=== PATIENT | male | born 1995 | race Caucasian/White ===

== ENCOUNTER 2021-02-20 18:59 | Emergency (ER) | payer OTHER ==
--- NOTE | 2021-02-20 19:43 | PCM.EKG ---
#1 Interpretation EKG Date: 02/20/21 Time: 19:32 Rhythm: NSR Rate (Beats/Min): 83 [place]: Normal P-Wave: Present QRS: Normal ST-T: Normal QT: Normal [place]/PQ Interval: 157 Comparison: NA - No Prior EKG EKG Interpretation Comments: normal EKG
[2021-02-20] MEDS ORDERED: Pantoprazole 80 MG in Sodium Chloride 0.9% 20 ML IVPUSH ONE (20:06)
[2021-02-20] MEDS ORDERED: Ketorolac 30 MG/ML SDV IVPUSH ONE (20:06)
[2021-02-20] MEDS ORDERED: Alum Hydro/Mag Hydro/Simeth XS 15 ML, Metoclopramide 5 MG, Lidocaine 2% 5 ML PO ONE ×3 (20:06)
[2021-02-20 20:15] LABS: BLOOD UREA NITROGEN,BUN 9 mg/dL (7.0-18.0); CHLORIDE,CL 103 mmol/L (98-107); GLUCOSE RANDOM 109 mg/dL (74-106); LIPASE 47 U/L (73-393); POTASSIUM,K 3.7 mmol/L (3.5-5.1); SODIUM,NA 141 mmol/L (136-148)
--- NOTE | 2021-02-20 20:26 | EDM.PDOC ---
ED HPI GENERAL MEDICAL PROBLEM - General Chief Complaint: Chest Pain Stated Complaint: CHEST PAIN, DIFFICULTY BREATHING Time Seen by Provider: 02/20/21 19:27 Source of Information: Reports: Patient History Limitations: Reports: No Limitations - History of Present Illness INITIAL COMMENTS - FREE TEXT/NARRATIVE: HISTORY AND PHYSICAL: History of present illness: Patient is an otherwise healthy 25-year-old male who presents emergency room today with concern of difficulty discerning lower chest pain versus upper abdominal pain that has been ongoing since midnight. Patient states that the pain has been constant he describes it as sharp. Patient denies any alleviating or worsening factors and is nonexertional. Patient states he has not tried any medications for his symptoms. Patient denies any other associated symptoms. Patient denies any family history of significant cardiac disease and denies any notable family history. Patient denies fever, chills, shortness of breath, or cough. Denies headache, neck stiff ness, change in vision, syncope, or near syncope. Denies nausea, vomiting, abdominal pain, diarrhea, constipation, or dysuria. Has not noted any blood in urine or stool. Patient has been eating and drinking appropriately. Review of systems: As per history of present illness and below otherwise all systems reviewed and negative. Past medical history: As per history of present illness and as reviewed below otherwise noncontributory. Surgical history: As per history of present illness and as reviewed below otherwise noncontributory. Social history: See social history for further information Family history: As per history of present illness and as reviewed below otherwise noncontributory. Physical exam: General: Patient is alert, oriented, and in no acute distress. Patient sitting comfortably on exam table. Vitals table and reviewed by me. HEENT: Atraumatic, normocephalic, pupils equal and reactive bilaterally, negative for conjunctival pallor or scleral icterus, mucous membranes moist, throat clear, neck supple, nontender, trachea midline. No drooling or trismus noted. No meningeal signs. No hot potato voice noted. Lungs/chest: Patient does have nonspecific pain to palpation of the inferior portion of the sternum. Otherwise, clear to auscultation, breath sounds equal bilaterally, chest nontender. Heart: S1S2, regular rate and rhythm without overt murmur Abdomen: Soft, nondistended, patient does have pain to palpation of the epigastric area of the abdomen. Negative aviles/rebound. Negative for masses or hepatosplenomegaly. Negative for costovertebral tenderness. Pelvis: Stable nontender. Genitourinary: Deferred. Rectal: Deferred. Skin: Intact, warm, dry. No lesions or rashes noted. Extremities: Atraumatic, negative for cords or calf pain. Neurovascular unremarkable. Neuro: Awake, alert, oriented. Cranial nerves II through XII unremarkable. Cerebellum unremarkable. Motor and sensory unremarkable throughout. Exam nonfocal. Medical Decision Making: Is an otherwise healthy 25-year-old male who presents emergency room today with concern of chest pain/upper abdominal pain has been ongoing since midnight. Upon arrival to the ED, patient is vitally stable and well-appearing on exam. On exam, patient does have reproducible pain to palpation of his inferior sternum as well as some discomfort in his epigastric region. At this time, will obtain cardiac evaluation, provide therapeutics, and reassess patient. Dr. Daly's dictation for specific EKG interpretation. However, normal sinus rhythm without STEMI. Mild derangements of lab work today unremarkable. Troponin negative. Chest x- ray unremarkable. COVID negative Upon reevaluation of patient, he remains vitally stable and comfortable throughout stay in ED. He does have improvement of his symptoms with therapeutics today in the emergency room. Did discuss with patient the difficulty of discerning chest versus epigastric abdominal pain. I did offer patient abdominal pelvic CT scan however, he declines at this time. All risks versus benefits discussed with patient expresses understanding. Strict return precautions thoroughly discussed with patient. Discussed importance for follow- up with primary care provider. Voices understanding and is agreeable to plan of care. Denies any further questions or concerns at this time. Diagnostics: EKG, CBC, CMP, CXR, Trop, Lipase, COVID Therapeutics: Toradol, GI cocktail, Protonix Prescription: None Impression: Atypical chest pain Plan: 1. You can alternate ibuprofen and Tylenol as directed for pain and discomfort. 2. Follow-up with primary care provider as discussed. Return to the ED as needed and as discussed. Definitive disposition and diagnosis as appropriate pending reevaluation and review of above. Middle Chest Pain Score (Numeric/FACES): 7 - Related Data Allergies Allergy/AdvReac Type Severity Reaction Status Date / Time No Known Allergies Allergy Verified 02/20/21 19:18 Home Meds: Home Meds . [No Known Home Meds] 02/20/21 [History] Past Medical History - Past Health History Medical/Surgical History: Denies Medical/Surgical History - Infectious Disease History Infectious Disease History: Reports: None Social & Family History - Family History Family Medical History: No Pertinent Family History - Tobacco Use Tobacco Use Status *Q: Never Tobacco User - Recreational Drug Use Recreational Drug Use: No ED ROS GENERAL - Review of Systems Review Of Systems: Comprehensive ROS is negative, except as noted in HPI. ED EXAM, GENERAL - Physical Exam Exam: See Below (see dictation) Course - Vital Signs Last Recorded V/S: Last Vital Signs Temp 97.2 F 02/20/21 19:19 Pulse 88 02/20/21 19:19 Resp 17 02/20/21 19:19 BP 133/81 02/20/21 19:19 Pulse Ox 96 02/20/21 19:19 - Orders/Labs/Meds Orders: Active Orders 24 hr Category Date Time Status EKG Documentation Completion [RC] STAT Care 02/20/21 19:27 Active Labs: Laboratory Tests 02/20/21 02/20/21 02/20/21 Range/Units 19:40 19:40 20:50 WBC 10.61 (4.0-11.0) K/uL RBC 5.02 (4.50-5.90) M/uL Hgb 15.0 (13.0-17.0) g/dL Hct 42.1 (38.0-50.0) % MCV 83.9 (80.0-98.0) fL MCH 29.9 (27.0-32.0) pg MCHC 35.6 (31.0-37.0) g/dL RDW Std Deviation 38.0 (28.0-62.0) fl RDW Coeff of Serena 13 (11.0-15.0) % Plt Count 296 (150-400) K/uL MPV 9.70 (7.40-12.00) fL Neut % (Auto) 55.1 (48.0-80.0) % Lymph % (Auto) 35.1 (16.0-40.0) % Gaines % (Auto) 7.0 (0.0-15.0) % Eos % (Auto) 2.2 (0.0-7.0) % Baso % (Auto) 0.6 (0.0-1.5) % Neut # (Auto) 5.9 H (1.4-5.7) K/uL Lymph # (Auto) 3.7 H (0.6-2.4) K/uL Gaines # (Auto) 0.7 (0.0-0.8) K/uL Eos # (Auto) 0.2 (0.0-0.7) K/uL Baso # (Auto) 0.1 (0.0-0.1) K/uL Nucleated RBC % 0.0 /100WBC Nucleated RBCs # 0 K/uL Sodium 141 (136-148) mmol/L Potassium 3.7 (3.5-5.1) mmol/L Chloride 103 (98-107) mmol/L Carbon Dioxide 24.0 (21.0-32.0) mmol/L BUN 9 (7.0-18.0) mg/dL Creatinine 1.0 (0.8-1.3) mg/dL Est Cr Clr Drug Dosing 137.31 mL/min Estimated GFR (MDRD) > 60.0 ml/min Glucose 109 H (74-106) mg/dL Calcium 9.0 (8.5-10.1) mg/dL Total Bilirubin 0.6 (0.2-1.0) mg/dL AST 29 (15-37) IU/L ALT 52 (14-63) IU/L Alkaline Phosphatase 119 H (46-116) U/L Troponin I < 0.050 (0.000-0.056) ng/mL Total Protein 8.0 (6.4-8.2) g/dL Albumin 4.2 (3.4-5.0) g/dL Globulin 3.8 (2.6-4.0) g/dL Albumin/Globulin Ratio 1.1 (0.9-1.6) Lipase 47 L (73-393) U/L SARS-CoV-2 RNA (MIRIAM) NEGATIVE (NEGATIVE) Meds: Medications Discontinued Medications Generic Name Dose Route Start Last Admin Trade Name Freq PRN Reason Stop Dose Admin Alum [place]/Mag [place]/Simeth XS 0 ml 02/20/21 20:06 02/20/21 20:21 15 ml/ Metoclopramide HCl 5 PO 02/20/21 20:07 25 each mg/ Lidocaine HCl 5 ml ONETIME ONE Administration Pantoprazole Sodium 80 mg/ 20 mls @ 420 mls/hr 02/20/21 20:06 02/20/21 20:20 Sodium Chloride IVPUSH 02/20/21 20:08 420 mls/hr ONETIME ONE Administration Ketorolac Tromethamine 30 mg 02/20/21 20:06 02/20/21 20:20 Ketorolac 30 Mg/Ml Sdv IVPUSH 02/20/21 20:07 30 mg ONETIME ONE Administration Departure - Departure Time of Disposition: 20:56 Disposition: Home, Self-Care 01 Clinical Impression: Atypical chest pain - Discharge Information Instructions: Nonspecific Chest Pain, Adult, [id number] Referrals: PCP,None [Primary Care Provider] - Forms: ED Department Discharge Additional Instructions: The following information is given to patients seen in the emergency department who are being discharged to home. This information is to outline your options for follow-up care. We provide all patients seen in our emergency department with a follow-up referral. The need for follow-up, as well as the timing and circumstances, are variable depending upon the specifics of your emergency department visit. If you don't have a primary care physician on staff, we will provide you with a referral. We always advise you to contact your personal physician following an emergency department visit to inform them of the circumstance of the visit and for follow-up with them and/or the need for any referrals to a consulting specialist. The emergency department will also refer you to a specialist when appropriate. This referral assures that you have the opportunity for follow-up care with a specialist. All of these measure are taken in an effort to provide you with optimal care, which includes your follow-up. Under all circumstances we always encourage you to contact your private physician who remains a resource for coordinating your care. When calling for follow-up care, please make the office aware that this follow-up is from your recent emergency room visit. If for any reason you are refused follow-up, please contact the [facility] Emergency Department at and asked to speak to the emergency department charge nurse. [facility] Primary Care [address] [place] [id number] [facility] [address] [place] [address] 1. You can alternate ibuprofen and Tylenol as directed for pain and discomfort. 2. Follow-up with a primary care provider as discussed. Return to the ED as needed and as discussed. Sepsis Event Note (ED) - Focused Exam Vital Signs: Vital Signs Temp Pulse Resp BP Pulse Ox 02/20/21 19:19 97.2 F 88 17 133/81 96 - My Orders Last 24 Hours: My Active Orders 02/20/21 19:27 EKG Documentation Completion [RC] STAT - Assessment/Plan Last 24 Hours: My Active Orders 02/20/21 19:27 EKG Documentation Completion [RC] STAT
--- NOTE | 2021-02-20 21:21 | CR ---
Indication: Chest pain Technique: Portable chest Comparison: No comparison Findings: Normal cardiac mediastinal silhouette. Low lung volumes. No acute airspace or interstitial. No effusion or pneumothorax. Impression: Negative chest Dictated by Lori Mccarty MD @ 02/20/2021 9:20:57 PM (Electronically Signed)
== END 2021-02-20 21:05 | disposition home or self-care (01) ==
LOC: MW.ED 18:59
DX: R07.89 Other chest pain (principal); Z20.822 Contact with and (suspected) exposure to COVID-19
CPT/HCPCS: 36415; 71045; 80053; 83690; 84484; 85025; 87635; 93005; 96374; 96375; 99285; A9270; C9113; J1885; U0002

== ENCOUNTER 2021-02-21 15:24 | Emergency (ER) | payer OTHER ==
--- NOTE | 2021-02-21 15:40 | PCM.EKG ---
#1 Interpretation EKG Date: 02/21/21 Time: 15:31 Rhythm: NSR Rate (Beats/Min): 73 [place]: Normal P-Wave: Present QRS: Normal ST-T: Normal QT: Normal [place]/PQ Interval: 149 Comparison: NA - No Prior EKG (Prior EKG not visible) EKG Interpretation Comments: Sinus Rhythm
[2021-02-21] MEDS ORDERED: Morphine 4 MG/ML VIAL IVPUSH ONE (16:59)
[2021-02-21] MEDS ORDERED: Ondansetron 4 MG/2 ML SDV IVPUSH ONE (16:59)
[2021-02-21] MEDS ORDERED: Ketorolac 30 MG/ML SDV IVPUSH ONE (16:59)
[2021-02-21] MEDS ORDERED: Iopamidol 755 MG/ML 500 ML Multipack Bottle IVPUSH STA (19:00)
--- NOTE | 2021-02-21 19:42 | CT ---
Indication: Lower chest pain/epigastric pain for 2 days. Technique: Multiple contiguous axial images were obtained from the lung bases to the symphysis pubis after the intravenous administration of 100 cc Isovue 370. Please note that all CT scans at this facility use dose modulation, iterative reconstruction, and/or weight-based dosing when appropriate to reduce radiation dose to as low as reasonably achievable. Comparison: None Findings: The lung bases are clear. No infiltrate, pleural effusion, or pneumothorax is identified. The heart is normal in size. No pericardial effusion is identified. The liver, spleen, pancreas, gallbladder, adrenals, and kidneys are normal. No intrahepatic biliary ductal dilatation is identified. No hydronephrosis is identified. In the pelvis, the urinary bladder is normal. The prostate gland is normal. The small and large bowel are normal in caliber. A few minimal diverticula are identified. The small and large bowel are normal in caliber. No significant stool is identified within the colon. The appendix is identified and is normal in caliber. No inflammatory changes are identified in the right lower quadrant. The aorta is normal in caliber. No free fluid or free air is identified within the abdomen or pelvis. No lytic or blastic lesions of the spine are identified. Impression: Essentially normal CT scan of the abdomen and pelvis with contrast Please note that all CT scans at this facility use dose modulation, iterative reconstruction, and/or weight-based dosing when appropriate to reduce radiation dose to as low as reasonably achievable. Dictated by Avis Paige MD @ 02/21/2021 7:40:25 PM (Electronically Signed)
[2021-02-21 20:15] LABS: BLOOD UREA NITROGEN,BUN 11 mg/dL (7.0-18.0); CARBON DIOXIDE,CO2 26.4 mmol/L (21.0-32.0); CHLORIDE,CL 106 mmol/L (98-107); GLUCOSE RANDOM 98 mg/dL (74-106); LIPASE 57 U/L (73-393); POTASSIUM,K 3.8 mmol/L (3.5-5.1); SODIUM,NA 142 mmol/L (136-148)
--- NOTE | 2021-02-21 20:25 | EDM.PDOC ---
ED HPI GENERAL MEDICAL PROBLEM - General Chief Complaint: Chest Pain Stated Complaint: CHEST PAIN Time Seen by Provider: 02/21/21 16:51 Source of Information: Reports: Patient History Limitations: Reports: No Limitations - History of Present Illness INITIAL COMMENTS - FREE TEXT/NARRATIVE: HISTORY AND PHYSICAL: History of present illness: Patient is a 25-year-old otherwise healthy male who presents emergency room today with concern of upper abdominal pain. Patient was seen and evaluated in the emergency room last night by myself. At that time, patient's complaint was more of chest pain with difficulty discerning chest versus abdominal pain. Today, patient states his pain has now more localized to the left upper quadrant and states that it is worse than it was yesterday so came for further evaluation being he declined imaging yesterday. Patient states he has not taken any additional medication for his symptoms today. Denies any other new associated symptoms. Patient denies fever, chills, chest pain, shortness of breath, or cough. Denies headache, neck stiff ness, change in vision, syncope, or near syncope. Denies nausea, vomiting, diarrhea, constipation, or dysuria. Has not noted any blood in urine or stool. Patient has been eating and drinking appropriately. Review of systems: As per history of present illness and below otherwise all systems reviewed and negative. Past medical history: As per history of present illness and as reviewed below otherwise noncontributory. Surgical history: As per history of present illness and as reviewed below otherwise noncontributory. Social history: See social history for further information Family history: As per history of present illness and as reviewed below otherwise noncontributory. Physical exam: General: Patient is alert, oriented, and in no acute distress. Patient sitting comfortably on exam table. Vitals stable and reviewed by me HEENT: Atraumatic, normocephalic, pupils equal and reactive bilaterally, negative for conjunctival pallor or scleral icterus, mucous membranes moist, throat clear, neck supple, nontender, trachea midline. No drooling or trismus noted. No meningeal signs. No hot potato voice noted. Lungs/chest: The inferior portion of the sternum is painful to palpation, no change in this from yesterday examination. Otherwise, clear to auscultation, breath sounds equal bilaterally, chest nontender. Heart: S1S2, regular rate and rhythm without overt murmur Abdomen: Soft, nondistended, moderate LUQ tenderness without guarding, negative rebound/dupree. Negative for masses or hepatosplenomegaly. Negative for costovertebral tenderness. Pelvis: Stable nontender. Genitourinary: Deferred. Rectal: Deferred. Skin: Intact, warm, dry. No lesions or rashes noted. Extremities: Atraumatic, negative for cords or calf pain. Neurovascular unremarkable. Neuro: Awake, alert, oriented. Cranial nerves II through XII unremarkable. Cerebellum unremarkable. Motor and sensory unremarkable throughout. Exam nonfocal. Medical Decision Making: Patient is an otherwise healthy 25-year-old male presents emergency room today with concern of left upper quadrant abdominal pain. I personally did see patient yesterday in the emergency room and at that time, he had a hard time discerning lower chest versus upper abdominal pain. Today, states his pain is more localized to the left upper quadrant. Upon arrival to the ED, patient is vitally stable and well-appearing on exam. Patient still continues to have pain to palpation of the inferior portion of the sternum, however, new from physical exam yesterday, patient does have moderate left upper quadrant tenderness without guarding and negative rebound or Dupree. At this time, will provide therapeutics, obtain repeat lab work, and obtain abdominal pelvic CT scan. EKG NSR without STEMI or acute changes. CBC does show leukocytosis mild at 11.75 which did not have yesterday. Otherwise, mild derangements of CBC unremarkable. CMP does show an isolated alk phos at 124, troponin negative. Otherwise mild derangements of CMP unremarkable. Lipase normal. D-dimer within normal limits. Troponin negative. Abdominal pelvic CT scan is essentially normal CT scan of the abdomen and pelvis with contrast. Upon reevaluation of patient, he does have improvement of his symptoms today in the emergency room. Did discuss with patient the potential for a possible gastritis/ulcer and discussed getting [id number] Prilosec and trying this for 2 weeks and see if this has any impact on his stomach pain. Also discussed with patient the potential for costochondritis giving the pain to palpation of his sternum. Discussed trying NSAID medication for this for the next couple days to see if this improves. Also discussed with patient the importance for calling tomorrow to set up a close follow-up with a primary care provider as he has had continued symptoms to monitor for improving versus worsening symptoms. Strict return precautions thoroughly discussed with patient. Voices understanding and is agreeable to plan of care. Denies any further questions or concerns at this time. Diagnostics: EKG, CBC, CMP, Lipase, Trop, Ddimer, Abd/Pelvic CT w cont Therapeutics: NS, Toradol, Morphine, Zofran Prescription: None Impression: Abdominal pain, left upper quadrant, unspecified Chest wall pain Plan: 1. Take [id number] Prilosec for 2 weeks as directed and as discussed. 2. You can alternate ibuprofen and Tylenol as as directed for pain and discomfort. 3. Follow-up with a primary care provider as discussed. Return to the ED as needed and as discussed. Definitive disposition and diagnosis as appropriate pending reevaluation and review of above. Chest Pain Score (Numeric/FACES): 6 - Related Data Allergies Allergy/AdvReac Type Severity Reaction Status Date / Time No Known Allergies Allergy Verified 02/21/21 16:15 Home Meds: Home Meds . [No Known Home Meds] 02/20/21 [History] Past Medical History - Past Health History Medical/Surgical History: Denies Medical/Surgical History - Infectious Disease History Infectious Disease History: Reports: None Social & Family History - Family History Family Medical History: No Pertinent Family History - Caffeine Use Caffeine Use: Reports: None - Recreational Drug Use Recreational Drug Use: No ED ROS GENERAL - Review of Systems Review Of Systems: Comprehensive ROS is negative, except as noted in HPI. ED EXAM, GENERAL - Physical Exam Exam: See Below (see dictation) Course - Vital Signs Last Recorded V/S: Last Vital Signs Temp 97.9 F 02/21/21 20:48 Pulse 64 02/21/21 20:48 Resp 16 02/21/21 20:48 BP 129/92 H 02/21/21 20:48 Pulse Ox 96 02/21/21 20:48 - Orders/Labs/Meds Labs: Laboratory Tests 02/21/21 02/21/21 02/21/21 Range/Units 17:20 17:20 17:20 WBC 11.75 H (4.0-11.0) K/uL RBC 5.07 (4.50-5.90) M/uL Hgb 15.0 (13.0-17.0) g/dL Hct 42.9 (38.0-50.0) % MCV 84.6 (80.0-98.0) fL MCH 29.6 (27.0-32.0) pg MCHC 35.0 (31.0-37.0) g/dL RDW Std Deviation 38.7 (28.0-62.0) fl RDW Coeff of Serena 13 (11.0-15.0) % Plt Count 296 (150-400) K/uL MPV 10.00 (7.40-12.00) fL Neut % (Auto) 60.6 (48.0-80.0) % Lymph % (Auto) 29.3 (16.0-40.0) % [place] % (Auto) 7.4 (0.0-15.0) % Eos % (Auto) 2.3 (0.0-7.0) % Baso % (Auto) 0.4 (0.0-1.5) % Neut # (Auto) 7.1 H (1.4-5.7) K/uL Lymph # (Auto) 3.4 H (0.6-2.4) K/uL [place] # (Auto) 0.9 H (0.0-0.8) K/uL Eos # (Auto) 0.3 (0.0-0.7) K/uL Baso # (Auto) 0.1 (0.0-0.1) K/uL Nucleated RBC % 0.0 /100WBC Nucleated RBCs # 0 K/uL D-Dimer, Quantitative 0.37 (0.0-0.50) mg/L FEU Sodium 142 (136-148) mmol/L Potassium 3.8 (3.5-5.1) mmol/L Chloride 106 (98-107) mmol/L Carbon Dioxide 26.4 (21.0-32.0) mmol/L BUN 11 (7.0-18.0) mg/dL Creatinine 1.2 (0.8-1.3) mg/dL Est Cr Clr Drug Dosing TNP Estimated GFR (MDRD) > 60.0 ml/min Glucose 98 (74-106) mg/dL Calcium 8.9 (8.5-10.1) mg/dL Total Bilirubin 0.3 (0.2-1.0) mg/dL AST 22 (15-37) IU/L ALT 51 (14-63) IU/L Alkaline Phosphatase 124 H (46-116) U/L Troponin I < 0.050 (0.000-0.056) ng/mL Total Protein 8.1 (6.4-8.2) g/dL Albumin 4.2 (3.4-5.0) g/dL Globulin 3.9 (2.6-4.0) g/dL Albumin/Globulin Ratio 1.1 (0.9-1.6) Lipase 57 L (73-393) U/L Meds: Medications Discontinued Medications Generic Name Dose Route Start Last Admin Trade Name Delio PRN Reason Stop Dose Admin Iopamidol 100 ml 02/21/21 19:00 02/21/21 19:01 Iopamidol 755 Mg/Ml 500 Ml Multipack Bottle IVPUSH 02/21/21 19:01 100 ml ONETIME STA Administration Ketorolac Tromethamine 30 mg 02/21/21 16:59 02/21/21 17:08 Ketorolac 30 Mg/Ml Sdv IVPUSH 02/21/21 17:00 30 mg ONETIME ONE Administration Morphine Sulfate 4 mg 02/21/21 16:59 02/21/21 17:08 Morphine 4 Mg/Ml Vial IVPUSH 02/21/21 17:00 4 mg ONETIME ONE Administration Ondansetron HCl 4 mg 02/21/21 16:59 02/21/21 17:09 Ondansetron 4 Mg/2 Ml Sdv IVPUSH 02/21/21 17:00 4 mg ONETIME ONE Administration Departure - Departure Time of Disposition: 20:25 Disposition: Home, Self-Care 01 Clinical Impression: Upper abdominal pain, Chest wall pain - Discharge Information Instructions: Abdominal Pain, Adult, [id number] Referrals: PCP,None [Primary Care Provider] - Forms: ED Department Discharge Additional Instructions: The following information is given to patients seen in the emergency department who are being discharged to home. This information is to outline your options for follow-up care. We provide all patients seen in our emergency department with a follow-up referral. The need for follow-up, as well as the timing and circumstances, are variable depending upon the specifics of your emergency department visit. If you don't have a primary care physician on staff, we will provide you with a referral. We always advise you to contact your personal physician following an emergency department visit to inform them of the circumstance of the visit and for follow-up with them and/or the need for any referrals to a consulting specialist. The emergency department will also refer you to a specialist when appropriate. This referral assures that you have the opportunity for follow-up care with a specialist. All of these measure are taken in an effort to provide you with optimal care, which includes your follow-up. Under all circumstances we always encourage you to contact your private physician who remains a resource for coordinating your care. When calling for follow-up care, please make the office aware that this follow-up is from your recent emergency room visit. If for any reason you are refused follow-up, please contact the [facility] Emergency Department at and asked to speak to the emergency department charge nurse. [facility] [address] [place] [id number] [address] 1. Take [id number] Prilosec for 2 weeks as directed and as discussed. 2. You can alternate ibuprofen and Tylenol as as directed for pain and discomfort. 3. Follow-up with a primary care provider as discussed. Return to the ED as needed and as discussed. Sepsis Event Note (ED) - Evaluation Sepsis Screening Result: No Definite Risk
== END 2021-02-21 20:49 | disposition home or self-care (01) ==
LOC: MW.ED 15:24
DX: R07.89 Other chest pain (principal); R10.12 Left upper quadrant pain
CPT/HCPCS: 74177; 80053; 83690; 84484; 85025; 85379; 93005; 96374; 96375; 99284; J1885; J2270; J2405; Q9967

== ENCOUNTER 2022-03-17 19:24 | Emergency (ER) | payer SELFPAY ==
[2022-03-17 23:02] LABS: CORONAVIRUS COVID-19 NAA POSITIVE (NEGATIVE); INFLUENZA A NAA NEGATIVE (NEGATIVE); INFLUENZA B NAA NEGATIVE (NEGATIVE)
== END 2022-03-17 23:46 | disposition home or self-care (01) ==
LOC: MW.ED 19:24
DX: U07.1 COVID-19 (principal); Z77.22 Contact with and (suspected) exposure to environmental tobacco smoke (acute) (chronic)
CPT/HCPCS: 0240U; 99283

== ENCOUNTER 2023-10-05 06:23 | Emergency (ER) | payer BC ==
[2023-10-05] MEDS: Ibuprofen 600 MG Tab PO ONE (06:39)
== END 2023-10-05 07:46 | disposition home or self-care (01) ==
LOC: MW.ED 06:23
DX: S93.401A Sprain of unspecified ligament of right ankle, initial encounter (principal); Z79.899 Other long term (current) drug therapy; Z75.8 Other problems related to medical facilities and other health care; X50.1XXA Overexertion from prolonged static or awkward postures, initial encounter
CPT/HCPCS: 73610; 73620; 99283; A9270